=== PATIENT | male | born 1960 | race Caucasian/White ===

== ENCOUNTER → 2023-04-25 | Outpatient (CLI) | payer OTHER ==
--- NOTE | 2023-04-27 13:05 | CT ---
EXAMINATION TYPE: CT abdomen pelvis wo con DATE OF EXAM: 04/25/2023 COMPARISON: None HISTORY: 62-year-old male R30.9, painful urination and hematuria CT DLP: 628.1 mGycm. Automated exposure control for dose reduction was used. TECHNIQUE: Contiguous axial scanning of the abdomen and pelvis without IV contrast. Coronal and sagit taj reconstructions performed. FINDINGS: Heart normal size without pericardial effusion. Strandy atelectasis or scarring basilar right middle lobe and inferior lingula. No pleural effusion. Scattered small calcified granulomas within the spleen and a couple within the liver. A 7 mm hypoden sity lateral inferior right liver lobe too small for accurate characterization, likely small cyst. Otherwise, noncontrast appearance of the gallbladder, adrenal glands, right kidney, and pancreas show s no gross abnormal. A couple renal cortical cysts on the left measuring 6.1 cm and 1.9 cm. No nephrolithiasis or hydronephrosis is seen. No dilated small bowel, free fluid, or free air. No mesenteric or retroperitoneal lymphadenopathy. Mild to moderate stool burden. Left-sided colonic diverticulosis, most extensive in the proximal to m id sigmoid colon. No pericolonic inflammatory change. Mild perivesicular fat stranding. Prostate gland measures 4.9 cm wide. There appears to have been pre vious bilateral inguinal wall mesh repair. Tiny pelvic phleboliths. No abnormal fluid collection in t he pelvis or pelvic lymphadenopathy. Bones: Mild to moderate degenerative changes at the hips. Mild to moderate multilevel spondylotic john nge visualized spine. IMPRESSION: 1. Mild perivesicular fat stranding. Correlate for cystitis. 2. Prostatomegaly of 4.9 cm wide. 3. Evidence of prior bilateral inguinal wall mesh repair. 4. A large 6.1 cm and smaller 1.9 cm benign left-sided renal cortical cysts. No nephrolithiasis or h ydronephrosis. Lack of contrast limits detailed assessment of the renal parenchyma. 5. Evidence of prior granulomatous disease. 6. Left-sided colonic diverticulosis, extensive in the proximal to mid sigmoid colon.
== END | disposition home or self-care (01) ==
LOC: RADCTMAIN 13:48
PROVIDERS: ATTEND Family Medicine
DX: K57.30 Diverticulosis of large intestine without perforation or abscess without bleeding (principal); D71 Functional disorders of polymorphonuclear neutrophils; K66.8 Other specified disorders of peritoneum; N28.1 Cyst of kidney, acquired; N40.0 Benign prostatic hyperplasia without lower urinary tract symptoms; N30.91 Cystitis, unspecified with hematuria; R30.9 Painful micturition, unspecified
CPT/HCPCS: 74176